=== PATIENT | female | born 1990 | race Asian ===

== ENCOUNTER 2018-12-07 04:07 | Emergency (ER) | payer OTHER ==
[~2018-12-07] VITALS: Ht 165.1 cm; Wt 46.4 kg
[2018-12-07 05:01] VITALS: BP 113/65
== END 2018-12-07 05:04 | disposition home or self-care (01) ==
LOC: ER 04:08
DX: S61.236A Puncture wound without foreign body of right little finger without damage to nail, initial encounter (principal); W46.0XXA Contact with hypodermic needle, initial encounter; Y93.89 Activity, other specified; Y92.238 Other place in hospital as the place of occurrence of the external cause; Y99.8 Other external cause status
CPT/HCPCS: 99281